=== PATIENT | male | born 1955 | race American Indian/Alaskan Native ===

== ENCOUNTER 2017-07-01 09:08 | Outpatient (CLI) | payer OTHER ==
--- NOTE | 2017-07-01 13:16 | Fluoroscopy Report ---
Small bowel series: Epigastric and right lower quadrant pain. Following oral ingestion of contrast barium was followed through the small bowel reaching the colon in 90 minutes. No persistent filling abnormalities, displacement, or small bowel dilatation identified. The terminal ileum was spotted under fluoroscopic observation and appears normal. There is faint opacification of the appendix. Impression: Normal examination.
== END 2017-07-01 09:09 | disposition home or self-care (01) ==
LOC: FLUORO 09:08
PROVIDERS: ATTEND Internal Medicine
DX: K22.8 Other specified diseases of esophagus (principal)
CPT/HCPCS: 74250

== ENCOUNTER 2017-09-15 09:16 | Outpatient (CLI) | payer OTHER ==
[2017-09-15] MEDS ORDERED: KINEVAC IV ONE ×2 (10:17→10:20)
--- NOTE | 2017-09-15 14:25 | Nuclear Medicine Report ---
HEPATOBILIARY SCAN: History: Right upper quadrant abdominal pain, nausea Comparison: No relevant comparison. Following the injection of the radionuclide, serial scanning was obtained over the right upper quadrant. Initial imaging of the liver demonstrates a relatively normal activity pattern. Progressive concentration of the radionuclide in the bile ducts, with filling of both the gallbladder and small bowel, is identified within a normal time period. The gallbladder ejection fraction is mildly decreased measuring 24%. The patient reports the same symptoms were reproduced during the infusion of CCK. IMPRESSION: The cystic duct is patent. Normal biliary to bowel transit time of the radiotracer. Mildly decreased gallbladder ejection fraction at 24% which could represent biliary dyskinesia.
== END 2017-09-15 09:17 | disposition home or self-care (01) ==
LOC: NM 09:16
PROVIDERS: ATTEND Internal Medicine
DX: R10.11 Right upper quadrant pain (principal); K21.9 Gastro-esophageal reflux disease without esophagitis
CPT/HCPCS: 78227; A9537; J2805